=== PATIENT | male | born 1970 | race Two or more races ===

== ENCOUNTER 2017-01-12 17:44 | Emergency (ER) | payer MEDICAID, OTHER ==
[~2017-01-12] VITALS: Ht 170.2 cm; Wt 70.8 kg
[~2017-01-12 17:44] MED LIST: IBUPROFEN600 MG ORAL; IBUPROFEN600 MG PO; NKM; NORCO 10-325 T1 EACH PO; ONDANSETRON ODT4 MG ORAL
[2017-01-12 17:58] VITALS: BP 119/87
[2017-01-12] MEDS ORDERED: CYCLOBENZAPRINE10 MG ORAL (18:43)
[2017-01-12] MEDS ORDERED: IBUPROFEN600 MG ORAL (18:43)
[2017-01-12] MEDS ORDERED: Cyclobenzaprine 10mg Tab ORAL ONE (18:45)
[2017-01-12 18:47] VITALS: BP 119/87
--- NOTE | 2017-01-12 20:28 | Emergency Room Report ---
History of Present Illness General Chief Complaint: General Complaint Source: Patient Present Illness [facility] The patient is a 46-year-old male presenting for total body cramping. He states that he has been working in the sun for the past few days. Symptoms began this afternoon described as an 8/10 cramping pain. Worse with movement. He states this has not happened in the past. He denies any other symptoms including N, V, F, chills, SOB, CP, dizziness, ACKERMAN, rash Allergies: Coded Allergies: No Known Allergies (Unverified , 05/08/12) Patient History Past Medical History: see triage record Pertinent Family History: none Reviewed Nursing Documentation: PMH: Agreed, PSxH: Agreed Nursing Documentation-PMH Past Medical History: No History, Except For Hx Cardiac Problems: No Hx Hypertension: No Hx Pacemaker: No Hx Asthma: No Hx COPD: No Hx Diabetes: No Hx Cancer: No Hx Gastrointestinal Problems: No Hx Dialysis: No Hx Neurological Problems: No Hx Cerebrovascular Accident: No Hx Seizures: No Review of Systems All Other Systems: negative except mentioned in HPI Physical Exam Vital Signs Date Time Temp Pulse Resp B/P (MAP) Pulse Ox O2 Delivery O2 Flow Rate FiO2 01/12/17 17:53 97.2 108 16 119/87 97 Room Air Sp02 EP Interpretation: reviewed, normal General Appearance: no apparent distress, alert, GCS 15, non-toxic Head: normocephalic, atraumatic Eyes: bilateral eye normal inspection, bilateral eye PERRL ENT: hearing grossly normal, normal pharynx, no angioedema, normal voice Neck: full range of motion, supple/symm/no masses Respiratory: chest non-tender, lungs clear, normal breath sounds, speaking full sentences Cardiovascular #1: regular rate, rhythm, no edema Musculoskeletal: back normal, gait/station normal, normal range of motion, non- tender Neurologic: alert, oriented x3, responsive, motor strength/tone normal, sensory intact, speech normal Psychiatric: judgement/insight normal, memory normal, mood/affect normal, no suicidal/homicidal ideation Skin: normal color, no rash, warm/dry, well hydrated Lymphatic: no adenopathy Medical Decision Making PA Attestation Dr. Tavares is my supervising physician. Patient management was discussed with my supervising physician Diagnostic Impression: Primary Impression: Muscle spasm ER Course The patient is a 46-year-old male presenting for total body cramping. Differential diagnosis considered not limited to: dehydration, muscle strain, electrolyte imbalance, among others PE: Normotensive. NAD HEENT unremarkable. Lungs CTA bilat RRR. No MRG Full AROM of shoulders, elbows, fingers, hips, and legs. Normal gait The patient be discharged home and is told he needs to stay hydrated and rest. He is given a note for work. ER precautions given EKG Diagnostic Results EP Interpretation: Sinus tachycardia Rate: tachycardiac - 113 Rhythm: NSR ST Segments: no acute changes ASA given to the pt in ED: No PA Scribe Text EKG was reviewed and read with my supervising physician. No acute ST segment changes are seen. Sinus tach. Normal rhythm. No acute changes. Last Vital Signs Date Time Temp Pulse Resp B/P (MAP) Pulse Ox O2 Delivery O2 Flow Rate FiO2 01/12/17 18:47 97.2 102 21 119/87 97 Room Air Status: improved Disposition: HOME, SELF-CARE Condition: Improved Scripts Cyclobenzaprine Hcl* (FLEXERIL*) 10 Mg Tablet 10 MG ORAL THREE TIMES A DAY, #15 TAB Prov: BETSY DOMÍNGUEZ P.A. 01/12/17 Ibuprofen* (MOTRIN*) 600 Mg Tablet 600 MG ORAL Q8H Y for For Pain, #30 TAB 0 Refills Prov: BETSY DOMÍNGUEZ P.A. 01/12/17 Referrals: DANIEL TAPIA,REFERRING (PCP) Patient Instructions: Muscle Strain Additional Instructions: I discussed my findings with the patient. All questions and concerns have been answered. Treatment and medication compliance have been addressed. I advised the patient that they need to follow up with Primary doctor within one week. Return to ED if symptoms worsen, new symptoms arise, or if needed for any reason. Patient verbalized understanding of discharge instructions. Please take in plenty of water BETSY DOMÍNGUEZ Jan 12, 2017 20:28
== END 2017-01-12 18:47 | disposition home or self-care (01) ==
LOC: EMR 18:31
DX: R25.2 Cramp and spasm (principal)
CPT/HCPCS: 99284

== ENCOUNTER 2017-05-21 18:39 | Emergency (ER) | payer OTHER ==
[~2017-05-21] VITALS: Ht 160 cm; Wt 72.6 kg
[~2017-05-21 18:39] MED LIST changes: +CYCLOBENZAPRINE10 MG ORAL
--- NOTE | 2017-05-21 18:56 | Emergency Room Report ---
History of Present Illness General Chief Complaint: General Complaint Source: Patient, Medical Record Present Illness HPI 46-year-old male presents to the emergency department complaining of 8/10 in severity pain that is localized to the anterior neck with swelling and difficulty swallowing hold food since this a.m. Patient denies fevers he denies chills. He reports neck pain does radiate on the left side up to the left ear. He denies history of immunocompromise. Denies hx of allergies. Neck posterior neck pain or stiffness. Denies CP, Palpitations, LOC, AMS, dizziness , Changes in Vision, Sensation, paresthesias, or a sudden severe headache. Pt. reports his voice is also abnormal. Allergies: Coded Allergies: No Known Allergies (Unverified , 05/08/12) Patient History Past Medical History: see triage record Past Surgical History: none Pertinent Family History: none Reviewed Nursing Documentation: PMH: Agreed, PSxH: Agreed Nursing Documentation-PMH Past Medical History: No Stated History Hx Cardiac Problems: No Hx Hypertension: No Hx Pacemaker: No Hx Asthma: No Hx COPD: No Hx Diabetes: No Hx Cancer: No Hx Gastrointestinal Problems: No Hx Dialysis: No Hx Neurological Problems: No Hx Cerebrovascular Accident: No Hx Seizures: No Review of Systems All Other Systems: negative except mentioned in HPI Physical Exam Vital Signs Date Time Temp Pulse Resp B/P (MAP) Pulse Ox O2 Delivery O2 Flow Rate FiO2 05/21/17 18:49 99.0 75 18 120/81 96 Room Air 99.0 Sp02 EP Interpretation: reviewed, normal General Appearance: no apparent distress, alert, GCS 15, non-toxic Head: normocephalic, atraumatic Eyes: bilateral eye normal inspection, bilateral eye PERRL ENT: hearing grossly normal, normal voice, TMs + canals normal, uvula midline, tonsillar swelling - no exudates, pharyngeal erythema, other - visable swelling / fullness in the anterior throat, some mild tenderness to the ST under tongue. no palpable nodules Neck: full range of motion Respiratory: chest non-tender, lungs clear, normal breath sounds, speaking full sentences Cardiovascular #1: regular rate, rhythm Musculoskeletal: back normal, gait/station normal, normal range of motion, non- tender Neurologic: alert, oriented x3, responsive, motor strength/tone normal, sensory intact, speech normal, grossly normal Psychiatric: judgement/insight normal Skin: normal color, no rash, warm/dry, well hydrated Lymphatic: no adenopathy Medical Decision Making PA Attestation Dr. Gordon is my supervising Physician whom patient management has been discussed with. Diagnostic Impression: Primary Impression: Pharyngitis, acute Qualified Codes: J02.0 - Streptococcal pharyngitis ER Course 46-year-old male presents to the emergency department complaining of 8/10 in severity pain that is localized to the anterior neck with swelling and difficulty swallowing hold food since this a.m. Patient denies fevers he denies chills. He reports neck pain does radiate on the left side up to the left ear. He denies history of immunocompromise. Denies hx of allergies. Neck posterior neck pain or stiffness. Denies CP, Palpitations, LOC, AMS, dizziness , Changes in Vision, Sensation, paresthesias, or a sudden severe headache. Pt. reports his voice is also abnormal. Ddx considered but are not limited to: pharyngitis, strep, SWIMMER, Ludwigs angina, retropharyngeal abscess, URI Vital signs: are WNL, pt. is afebrile H&PE are most consistent with: Possible retropharyngeal abscess. 2 labs and imaging patient currently has patent airway and no evidence of acute impending airway obstruction. ORDERS: -CBC, CMP: WNL - CT Neck Soft Tissues with Contrast: no abscess, normal epiglottis, moderate maxillary sinusitis. ED INTERVENTIONS: -Decadron 8mg IV -Toradol IV - Augmentin PO DISCHARGE: At this time pt. is stable for d/c to home. Will provide printed patient care instructions, and any necessary prescriptions. Care plan and follow up instructions have been discussed with the patient prior to discharge. Labs Test 05/21/17 19:30 White Blood Count 11.8 K/UL (4.8-10.8) Red Blood Count 5.42 M/UL (4.70-6.10) Hemoglobin 16.7 G/DL (14.2-18.0) Hematocrit 47.7 % (42.0-52.0) Mean Corpuscular Volume 88 FL (80-99) Mean Corpuscular Hemoglobin 30.8 PG (27.0-31.0) Mean Corpuscular Hemoglobin Concent 35.0 G/DL (32.0-36.0) Red Cell Distribution Width 10.8 % (11.6-14.8) Platelet Count 290 K/UL (150-450) Mean Platelet Volume 5.8 FL (6.5-10.1) Neutrophils (%) (Auto) 66.5 % (45.0-75.0) Lymphocytes (%) (Auto) 19.4 % (20.0-45.0) Monocytes (%) (Auto) 11.0 % (1.0-10.0) Eosinophils (%) (Auto) 2.4 % (0.0-3.0) Basophils (%) (Auto) 0.7 % (0.0-2.0) Sodium Level 138 MMOL/L (136-145) Potassium Level 3.8 MMOL/L (3.5-5.1) Chloride Level 102 MMOL/L (98-107) Carbon Dioxide Level 30 MMOL/L (21-32) Anion Gap 6 mmol/L (5-15) Blood Urea Nitrogen 18 mg/dL (7-18) Creatinine 1.3 MG/DL (0.55-1.30) Estimat Glomerular Filtration Rate 59.7 mL/min (>60) Glucose Level 101 MG/DL (74-106) Calcium Level 10.0 MG/DL (8.5-10.1) Total Bilirubin 0.2 MG/DL (0.2-1.0) Aspartate Amino Transf (AST/SGOT) < 5 U/L (15-37) Alanine Aminotransferase (ALT/SGPT) 33 U/L (12-78) Alkaline Phosphatase 112 U/L (46-116) Total Protein 8.3 G/DL (6.4-8.2) Albumin 3.8 G/DL (3.4-5.0) Globulin 4.5 g/dL Albumin/Globulin Ratio 0.8 (1.0-2.7) CT/MRI/US Diagnostic Results CT/MRI/US Diagnostic Results : Imaging Test Ordered: CT Neck Soft tissues with contrast Impression "Negative for abscess, epiglottis and epiglotic folds WNL, tonsillar loop in the right carotid arteries, moderate sinusitis." Per official radiology report- Please see report for specific details. Last Vital Signs Date Time Temp Pulse Resp B/P (MAP) Pulse Ox O2 Delivery O2 Flow Rate FiO2 05/21/17 18:49 99.0 75 18 120/81 96 Room Air 99.0 Disposition: HOME, SELF-CARE Condition: Stable Scripts Lidocaine HCl 2% Viscous (Lidocaine HCl 2% Viscous) 100 Ml Solution 15 ML ORAL QID, #200 ML Prov: Kandice Mccord 05/21/17 Ibuprofen* (MOTRIN*) 600 Mg Tablet 600 MG ORAL THREE TIMES A DAY, #20 TAB 0 Refills Prov: Kandice Mccord 05/21/17 Amoxicillin/Potassium Clav 875-125* (AUGMENTIN 875-125 TABLET*) 1 Each Tablet 1 TAB ORAL TWICE A DAY for 10 Days, #20 TAB Prov: Kandice Mccord 05/21/17 Patient Instructions: Pharyngitis Additional Instructions: Take medications as directed. Follow up with a Primary Care Provider in 3-5 days, even if your symptoms have resolved. --Please review list of primary care clinics, if you do not already have a primary care provider Return sooner to ED if new symptoms occur, or current symptoms become worse. - Please note that this Emergency Department Report was dictated using [employer] installation coordinator technology software, occasionally this can lead to erroneous entry secondary to interpretation by the dictation equipment. Kandice Mccord May 21, 2017 18:56
[2017-05-21] MEDS ORDERED: Dexamethasone 4mg/ml vial IVP ONE (19:45)
[2017-05-21 19:47] LABS: BASOPHILS % (AUTO) 0.7 % (0.0-2.0); EOSINOPHILS % (AUTO) 2.4 % (0.0-3.0); HEMATOCRIT 47.7 % (42.0-52.0); HEMOGLOBIN 16.7 G/DL (14.2-18.0); LYMPHOCYTES % (AUTO) 19.4 % (20.0-45.0); MEAN CORPUSCULAR VOLUME 88 FL (80-99); NEUTROPHILS % (AUTO) 66.5 % (45.0-75.0); PLATELET COUNT 290 K/UL (150-450); RED BLOOD COUNT 5.42 M/UL (4.70-6.10); RED CELL DISTRIBUTION WIDTH 10.8 % (11.6-14.8); WHITE BLOOD COUNT 11.8 K/UL (4.8-10.8)
[2017-05-21 20:02] LABS: ANION GAP 6 mmol/L (5-15); BLOOD UREA NITROGEN 18 mg/dL (7-18); CARBON DIOXIDE 30 MMOL/L (21-32); CHLORIDE 102 MMOL/L (98-107); CREATININE 1.3 MG/DL (0.55-1.30); POTASSIUM 3.8 MMOL/L (3.5-5.1); SODIUM 138 MMOL/L (136-145)
[2017-05-21 20:08] LABS: ALANINE AMINOTRANSFERASE 33 U/L (12-78); ALBUMIN 3.8 G/DL (3.4-5.0); ALBUMIN/GLOBULIN RATIO 0.8 (1.0-2.7); ALKALINE PHOSPHATASE 112 U/L (46-116); ASPARTATE AMINO TRANSFERASE < 5 U/L (15-37); BILIRUBIN,TOTAL 0.2 MG/DL (0.2-1.0)
[2017-05-21] MEDS ORDERED: Ketorolac 30mg Inj IV ONE (20:45)
[2017-05-21] MEDS ORDERED: LIDOCAINE VISC100 ML ORAL (21:25)
[2017-05-21] MEDS ORDERED: IBUPROFEN600 MG ORAL (21:25)
[2017-05-21] MEDS ORDERED: AUGMENTIN 875-1 EAC1 ORAL (21:25)
[2017-05-21 21:40] VITALS: BP 122/80
[2017-05-21] MEDS ORDERED: Augmentin 875mg Tab ORAL ONE (21:45)
--- NOTE | 2017-05-22 10:29 | Diagnostic Imaging Report ---
Indication: Neck pain. Technique: Continuous helical imaging of the neck was obtained transaxially from the skull base to the upper thoracic spine during intravenous administration of nonionic contrast. 2-D coronal and sagittal reformatted images were obtained. Total Dose length Product (DLP): 719.[address] Dose Index Volume (CTDIvol): 20.66 mGy Comparison: None Findings: Skull base structures are unremarkable. Mastoids are clear bilaterally. The visualized nasopharynx, oropharynx, and hypopharynx appears unremarkable. There is no mass or asymmetry identified. Supraglottic structures including the epiglottis and aryepiglottic folds appear normal. Right ICA tonsillar loop noted. The larynx is unremarkable. The subglottic airway is clear. There is no lymphadenopathy. The parotid, thyroid, submandibular and sublingual glands appear unremarkable. Impression: Negative contrast-enhanced CT of the neck. The CT scanner at [facility] is accredited by the [employer] and the scans are performed using dose optimization techniques as appropriate to a performed exam including Automatic Exposure control.
== END 2017-05-21 21:45 | disposition home or self-care (01) ==
LOC: EMR 21:43
DX: J02.9 Acute pharyngitis, unspecified (principal)
CPT/HCPCS: 36415; 70491; 80053; 85025; 96374; 96375; 99284; J1100; J1885; Q9967

== ENCOUNTER 2018-09-24 14:30 | Emergency (ER) | payer OTHER ==
[~2018-09-24] VITALS: Ht 170.2 cm; Wt 86.2 kg
[~2018-09-24 14:30] MED LIST changes: +AUGMENTIN 875-1 EAC1 ORAL; +LIDOCAINE VISC100 ML ORAL
[2018-09-24 14:41] VITALS: BP 112/72
--- NOTE | 2018-09-24 14:41 | NUR ---
ED Nurse Note: Pt got bug bite on lateral L lower leg on 09/22/18, unknown bug. Has been experiencing pain and redness since then, chills and fever last night, oral temp 98.2F at triage. AOx4, VSS. Will cont to monitor.
--- NOTE | 2018-09-24 14:50 | Emergency Room Report ---
History of Present Illness General Chief Complaint: Skin Rash/Abscess Source: Patient Present Illness HPI 47-year-old male with no symptom past medical history here complaining of itchiness and pain in the left calf after being bit while was at the park 2 days ago. Patient does not recall whether he was bit by spider or mosquito. Complains of 5 out of 10 pain without radiation warm to touch patient complains of extremely pruritic rash. Denies chills however complains of being feverish did not measure temperature at home. Denies tingling and numbness, chest pain, shortness of breath, palpitation, abdominal pain, nausea vomiting. Denies any history of diabetes or hypertension. Has not taken medication for his symptoms. Allergies: Coded Allergies: No Known Allergies (Unverified , 05/08/12) Patient History Past Medical History: see triage record Past Surgical History: unable to obtain Pertinent Family History: none Immunizations: UTD Reviewed Nursing Documentation: PMH: Agreed; PSxH: Agreed Nursing Documentation-PMH Past Medical History: No Stated History Hx Cardiac Problems: No Hx Hypertension: No Hx Pacemaker: No Hx Asthma: No Hx COPD: No Hx Diabetes: No Hx Cancer: No Hx Gastrointestinal Problems: No Hx Dialysis: No Hx Neurological Problems: No Hx Cerebrovascular Accident: No Hx Seizures: No Review of Systems All Other Systems: negative except mentioned in HPI Physical Exam Vital Signs Date Time Temp Pulse Resp B/P (MAP) Pulse Ox O2 Delivery O2 Flow Rate FiO2 09/24/18 14:36 98.2 85 20 112/72 (85) 95 Room Air Sp02 EP Interpretation: reviewed, normal General Appearance: normal inspection, well appearing, no apparent distress, alert, GCS 15 Head: normocephalic, atraumatic Eyes: bilateral eye normal inspection, bilateral eye PERRL ENT: normal ENT inspection, hearing grossly normal, normal voice Neck: full range of motion, supple Respiratory: normal inspection, chest non-tender, lungs clear, no rhonchi Cardiovascular #1: normal inspection, normal peripheral pulses, no edema, no murmur, normal capillary refill Cardiovascular #2: 2+ dorsalis pedis (R), 2+ dorsalis pedis (L) Gastrointestinal: normal inspection, soft, no mass, no peritonitis Rectal: deferred Genitourinary: no CVA tenderness Musculoskeletal: normal inspection, back normal, non-tender, no calf tenderness Neurologic: normal inspection, alert, oriented x3, responsive Psychiatric: normal inspection, judgement/insight normal Skin: other - Erythema and edema of left calf of Lymphatic: normal inspection, no adenopathy Medical Decision Making PA Attestation All my diagnosis and treatment plans were reviewed ad discussed with my supervising physician Dr. Davis Diagnostic Impression: Primary Impression: Cellulitis Additional Impression: Insect bite ER Course 47-year-old male with no symptom past medical history here complaining of itchiness and pain in the left calf after being bit while was at the park 2 days ago. Patient does not recall whether he was bit by spider or mosquito. Complains of 5 out of 10 pain without radiation warm to touch patient complains of extremely pruritic rash. Denies chills however complains of being feverish did not measure temperature at home. Denies tingling and numbness, chest pain, shortness of breath, palpitation, abdominal pain, nausea vomiting. Denies any history of diabetes or hypertension. Has not taken medication for his symptoms. Ddx considered but are not limited to : Cellulitis, DVT, superficial infection, abscess Vital signs: are WNL, pt. is afebrile H&PE are most consistent with: Cellulitis secondary to skin rash ORDERS: Keflex, naproxen, hydrocortisone cream and there is no indication for ruling out DVT as patient has no risk factor ED INTERVENTIONS: None required at this time. DISCHARGE: At this time pt. is stable for d/c to home. Will provide printed patient care instructions, and any necessary prescriptions. Care plan and follow up instructions have been discussed with the patient prior to discharge. Alternate between icing and heating the affected area follow-up with primary care provider if fever and chills worsens or worsening symptoms return to the emergency room. Last Vital Signs Date Time Temp Pulse Resp B/P (MAP) Pulse Ox O2 Delivery O2 Flow Rate FiO2 09/24/18 14:41 98.2 85 20 112/72 95 Room Air Disposition: HOME, SELF-CARE Condition: Stable Scripts Hydrocortisone/Aloe Vera 1%* (HYDROCORTISONE-ALOE 1% CREAM*) Y Cr 1 APPLIC TOPIC Q6H PRN for Itching, #30 GM Prov: Gurvinder Olivas 09/24/18 Naproxen* (NAPROXEN*) 500 Mg Tablet 500 MG ORAL TWICE A DAY, #30 TAB Prov: Gurvinder Olivas 09/24/18 Cephalexin* (KEFLEX*) 500 Mg Capsule 500 MG ORAL EVERY 6 HOURS for 7 Days, #28 CAP Prov: Gurvinder Olivas 09/24/18 Patient Instructions: Cellulitis, [id number], Insect Bite, [id number] Additional Instructions: Take medication as directed follow-up with your primary care provider icing the area helps with symptom relief keep leg elevated at this point no ultrasound needed as there was no calf tenderness and good pedal pulses noted Gurvinder Olivas Sep 24, 2018 14:50
[2018-09-24] MEDS ORDERED: NAPROXEN500 M2 ORAL (14:51)
[2018-09-24] MEDS ORDERED: HYDROCORTISONE-30 GM TOPIC (14:51)
[2018-09-24] MEDS ORDERED: CEPHALEXIN500 MG ORAL (14:51)
[2018-09-24] MEDS ORDERED: Cephalexin 500mg cap ORAL ONE (15:00)
[2018-09-24 15:04] VITALS: BP 112/72
--- NOTE | 2018-09-24 15:05 | NUR ---
ER DISCHARGE NOTE: Patient is cleared to be discharged per ERMD with family member, pt is aox4, on room air, with stable vital signs. pt was given dc and prescription instructions, pt was able to verbalize understanding, pt id band removed. pt is able to ambulate with steady gait. pt took all belongings.
== END 2018-09-24 15:05 | disposition home or self-care (01) ==
LOC: EMR 14:55
DX: L03.116 Cellulitis of left lower limb (principal); S80.862A Insect bite (nonvenomous), left lower leg, initial encounter; W57.XXXA Bitten or stung by nonvenomous insect and other nonvenomous arthropods, initial encounter; Y92.9 Unspecified place or not applicable
CPT/HCPCS: 99283

== ENCOUNTER 2019-05-31 21:04 | Emergency (ER) | payer OTHER ==
[~2019-05-31] VITALS: Ht 170.2 cm; Wt 81.6 kg
[~2019-05-31 21:04] MED LIST changes: +CEPHALEXIN500 MG ORAL; +HYDROCORTISONE-30 GM TOPIC; +NAPROXEN500 M2 ORAL
--- NOTE | 2019-05-31 21:16 | NUR ---
ED Nurse Note: ERMD at bedside. Pt stated that a large plastic container fell onto his left knee and caused his knee to bend. Pt states pain on medial left knee area but denies radiating pain, 10/29. VSS. Pt ambulated into ED from home. Awaiting xray
--- NOTE | 2019-05-31 21:20 | NUR ---
ED Nurse Note: stage settings painter at bedside for crutches and immobilization
--- NOTE | 2019-05-31 21:22 | Emergency Room Report ---
History of Present Illness General Chief Complaint: Lower Extremity Injury Source: Patient Present Illness HPI Disclaimer: Please note that this report is being documented using DRAGON technology. This can lead to erroneous entry secondary to incorrect interpretation by the dictating instrument. HPI: 48-year-old male presents for evaluation of left knee pain. He was working earlier this morning when a large container of plastic fell over the lateral aspect of his knee bending inward. He notes increased laxity though he is able to bear weight. He notes pain over the medial aspect of his leg. He is able to extend his leg and flex his leg. The joint itself feels unstable. No some swelling. Denies skin breakdown or injury. No prior history of injury to the knee. Denies any pain or injury to the lower leg or in the hip. PMH: Reviewed PSH: Reviewed Allergies: Reviewed Allergies: Coded Allergies: No Known Allergies (Unverified , 05/08/12) Nursing Documentation-PM Past Medical History: No Stated History Hx Cardiac Problems: No Hx Hypertension: No Hx Pacemaker: No Hx Asthma: No Hx COPD: No Hx Diabetes: No Hx Cancer: No Hx Gastrointestinal Problems: No Hx Dialysis: No History Of Psychiatric Problem: No Hx Neurological Problems: No Hx Cerebrovascular Accident: No Hx Seizures: No Review of Systems All Other Systems: negative except mentioned in HPI Physical Exam Vital Signs Date Time Temp Pulse Resp B/P (MAP) Pulse Ox O2 Delivery O2 Flow Rate FiO2 05/31/19 21:11 98.2 93 18 100/73 (82) 97 Room Air General: Awake and alert, no acute distress HEENT: NC/AT. EOMI. Resp: Normal work of breathing Skin: Intact. No abrasions, laceration or rash over the exposed skin MSK: Normal tone and bulk. Moving all extremities. No obvious deformity. Moderate circumferential edema. No tenderness palpation over the patella. Patella is anatomic position. Able to extend the knee fully. Able to flex. Able to bear weight. There is increased laxity on valgus stress. No laxity with varus stress. Neuro: Awake and alert. Mentating appropriately. Sensation intact over the lower extremity dermatomes. Procedures Splinting Splinting : Consent: Verbal Pre-Made Type: knee immobilizer Pre-Proc Neuro Vasc Exam: normal Post-Proc Neuro Vasc Exam: normal Patient Tolerated: Well Complications: None Medical Decision Making Diagnostic Impression: Primary Impression: Knee injury ER Course 48-year-old male presents for evaluation of left leg injury complaining of increased laxity in the left knee. Differential includes was not limited to ligamentous strain, knee dislocation, fracture, sprain to name a few. X-ray was obtained does not show a fracture or dislocation. Patient will be placed in a knee immobilizer and provided with crutches. Concern for meniscal or medial ligament injury. May require more advanced imaging on an outpatient basis. Will refer to orthopedic surgery. Will provide with crutches and pain medication. He will follow-up on an outpatient basis and return with any new or worsening symptoms. He understands and agrees with this treatment plan. Other X-Ray Diagnostic Results Other X-Ray Diagnostic Results : X-Ray ordered: Left knee # of Views/Limited Vs Complete: 3 View Indication: Pain EP Interpretation: Yes Interpretation: no dislocation, no soft tissue swelling, no fractures Impression: No acute disease Electronically Signed by: Electronically signed by Dr. Arpit Gomez Last Vital Signs Date Time Temp Pulse Resp B/P (MAP) Pulse Ox O2 Delivery O2 Flow Rate FiO2 05/31/19 21:11 98.2 93 18 100/73 (82) 97 Room Air Disposition: HOME, SELF-CARE Condition: Stable Scripts Hydrocodone Bit/Acetaminophen 5-325* (NORCO 5-325 TABLET*) 1 Each Tablet 1 TAB ORAL Q4H PRN for For Pain, #10 TAB Prov: Arpit Gomez MD 05/31/19 Ibuprofen* (MOTRIN*) 600 Mg Tablet 600 MG PO TID, #30 TAB Prov: Arpit Gomez MD 05/31/19 Arpit Gomez MD May 31, 2019 21:22
--- NOTE | 2019-05-31 21:25 | NUR ---
ED Nurse Note: xray at bedside
[2019-05-31] MEDS ORDERED: HYDROcodone/Acetamin 5/325 tab ORAL ONE (21:30)
--- NOTE | 2019-05-31 21:33 | NUR ---
ED Nurse Note: all medications administered, no ss of distress noted. no adverse reactions noted. pt tolerated well
[2019-05-31] MEDS ORDERED: NORCO 5-325 TA1 EAC1 ORAL (21:40)
[2019-05-31] MEDS ORDERED: IBUPROFEN600 MG PO (21:40)
[2019-05-31 21:45] VITALS: BP 100/73
--- NOTE | 2019-05-31 21:45 | NUR ---
ER DISCHARGE NOTE: Patient is cleared to be discharged home per ERMD, pt is aox4, on room air, with stable vital signs. pt was given dc and prescription instructions, pt was able to verbalize understanding, pt id band removed. pt is able to ambulate with steady gait. pt took all belongings. pt given crutches and immobilizer for left leg
--- NOTE | 2019-06-01 09:04 | Diagnostic Imaging Report ---
Indication: Pain, trauma Technique: 3 views of the left knee Comparison: None Findings: No acute fractures. No dislocations. No suprapatellar effusion. The joint spaces are preserved Impression: Negative
== END 2019-05-31 21:45 | disposition home or self-care (01) ==
LOC: EMR 21:25
DX: S89.92XA Unspecified injury of left lower leg, initial encounter (principal); X58.XXXA Exposure to other specified factors, initial encounter; Y92.9 Unspecified place or not applicable; Y99.0 Civilian activity done for income or pay
CPT/HCPCS: 29505; 73562; Z7502; 99283

== ENCOUNTER 2020-05-06 17:42 | Emergency (ER) | payer OTHER ==
[~2020-05-06] VITALS: Ht 170.2 cm; Wt 86.2 kg
[~2020-05-06 17:42] MED LIST changes: +NORCO 5-325 TA1 EAC1 ORAL
[2020-05-06] MEDS ORDERED: Tetracaine 0.5% Opth 4ml Soln LEFT EYE ONE (19:15)
[2020-05-06] MEDS ORDERED: Fluorescein Strips LEFT EYE ONE (19:15)
--- NOTE | 2020-05-06 19:15 | NUR ---
ED Nurse Note: Pt walked into ED due to left eye pain/burning after mihir mirza went into eye today around 1200. Pt stated; he washed eye with water and put eye drops but still having pain. pt vision is 20/22 and his eye is red.
[2020-05-06 19:17] VITALS: BP 161/97
[2020-05-06] MEDS ORDERED: Morgan Lens TOPIC ONE (19:45)
--- NOTE | 2020-05-06 19:58 | Emergency Room Report ---
History of Present Illness General Chief Complaint: Eye Problems Source: Patient Present Illness HPI 49-year-old male with no significant past medical history here complaining of left thigh pain after he was cutting wood earlier today and few particles were inside his eye. Minimal swelling of the left thigh noted with conjunctival injected. Patient denies any photophobia and blurry vision at this time. Den ies any headache and dizziness. Reports that he has a foreign body sensation inside the eye. Denies headache, dizziness, fever and chills. Has not taken medication for symptom relief. Denies any fall or injuries to the face. Allergies: Coded Allergies: No Known Allergies (Unverified , 05/08/12) COVID-19 Screening Contact w/high risk pt: No Experienced COVID-19 symptoms?: No COVID-19 Testing performed RESPIRATORY MANAGER: No Patient History Past Medical History: see triage record Past Surgical History: none Pertinent Family History: none Immunizations: UTD Reviewed Nursing Documentation: PMH: Agreed; PSxH: Agreed Nursing Documentation-PMH Past Medical History: No Stated History Hx Cardiac Problems: No Hx Hypertension: No Hx Pacemaker: No Hx Asthma: No Hx COPD: No Hx Diabetes: No Hx Cancer: No Hx Gastrointestinal Problems: No Hx Dialysis: No Hx Neurological Problems: No Hx Cerebrovascular Accident: No Hx Seizures: No Review of Systems All Other Systems: negative except mentioned in HPI Physical Exam Vital Signs Date Time Temp Pulse Resp B/P (MAP) Pulse Ox O2 Delivery O2 Flow Rate FiO2 05/06/20 19:07 98.2 72 18 161/97 (118) 100 Room Air Sp02 EP Interpretation: reviewed, normal General Appearance: no apparent distress, alert, GCS 15, non-toxic Head: normocephalic, atraumatic Eyes: left eye other - Corneal ulcer noted; bilateral eye PERRL ENT: normal pharynx Neck: full range of motion, supple/symm/no masses Respiratory: no respiratory distress, no retraction, speaking full sentences Cardiovascular #1: regular rate, rhythm, no edema Gastrointestinal: soft Musculoskeletal: back normal Neurologic: alert, motor strength/tone normal, oriented x3, sensory intact, responsive, speech normal Psychiatric: judgement/insight normal, memory normal, mood/affect normal, no suicidal/homicidal ideation Skin: no rash Lymphatic: no adenopathy Medical Decision Making PA Attestation All my diagnosis and treatment plans were reviewed ad discussed with my supervising physician Dr. Ayala Diagnostic Impression: Primary Impression: Corneal ulcer ER Course 49-year-old male with no significant past medical history here complaining of left thigh pain after he was cutting wood earlier today and few particles were inside his eye. Minimal swelling of the left thigh noted with conjunctival injected. Patient denies any photophobia and blurry vision at this time. Denies any headache and dizziness. Reports that he has a foreign body sensation inside the eye. Denies headache, dizziness, fever and chills. Has not taken medication for symptom relief. Denies any fall or injuries to the face. Ddx considered but are not limited to: bacterial conjunctivitis, allergic conjunctivitis, viral conjunctivitis, periorbital cellulitis, global trauma Vital signs: are WNL, pt. is afebrile H&PE are most consistent with: Corneal ulcer ORDERS: Ciprofloxacin ophthalmic, Motrin ED INTERVENTIONS: Brayden lens treatment I visualize left eye using Wood lamp, fluorescein strips and tetracaine, corneal ulcer noted left lateral cornea without any abrasion. No obvious foreign body noted. DISCHARGE: At this time pt. is stable for d/c to home. Will provide printed patient care instructions, and any necessary prescriptions. Care plan and follow up instructions have been discussed with the patient prior to discharge. Advised patient to follow-up with aerobics instructor in 24 to 48 hours, provided him with Information to an aerobics instructor however advised to follow-up primary doctor for referral or go to [facility] places such as [facility]. If worsening symptoms return to the emergency room Last Vital Signs Date Time Temp Pulse Resp B/P (MAP) Pulse Ox O2 Delivery O2 Flow Rate FiO2 05/06/20 19:17 98.2 18 161/97 100 Room Air 05/06/20 19:07 72 Disposition: HOME, SELF-CARE Condition: Stable Scripts Ibuprofen* (MOTRIN*) 600 Mg Tablet 600 MG ORAL Q6H PRN for For Pain, #30 TAB 0 Refills Prov: Gurvinder Olivas 05/06/20 Ciprofloxacin (Ciprofloxacin HCl) 2.5 Ml Drops 2 DROP LEFT EYE Q6HR for 14 Days, #5 ML 2gtt in left eye [id number] then q30min x18h, then q1h x1day, then q4h [id number] Prov: Gurvinder Olivas 05/06/20 Referrals: DANIEL TAPIA,REFERRING (PCP) Patient Instructions: Corneal Ulcer Additional Instructions: Take medication as directed, follow-up with aerobics instructor in 24 to 48 hours, if worsening symptom return to the emergency room Gurvinder Olivas May 06, 2020 19:58
[2020-05-06] MEDS ORDERED: CILOXAN 0.3% O1 DROP LEFT EYE (20:01)
[2020-05-06] MEDS ORDERED: IBUPROFEN600 M1 ORAL (20:01)
[2020-05-06 20:07] VITALS: BP 161/97
--- NOTE | 2020-05-06 20:07 | NUR ---
ER DISCHARGE NOTE: Patient is cleared to be discharged per ERMD, pt is aox4, on room air, with stable vital signs. pt was given dc and prescription instructions, pt was able to verbalize understanding, pt id band removed without complications. pt is able to ambulate with steady gait. pt took all belongings.
== END 2020-05-06 20:07 | disposition home or self-care (01) ==
LOC: EMR 19:30
DX: H16.002 Unspecified corneal ulcer, left eye (principal); X58.XXXA Exposure to other specified factors, initial encounter; Y92.9 Unspecified place or not applicable
CPT/HCPCS: 99282